=== PATIENT | female | born 1995 | race African-American/Black ===

== ENCOUNTER 2017-08-24 16:57 | Emergency (ER) | payer BC, OTHER ==
[~2017-08-24] VITALS: Ht 157.5 cm; Wt 63.5 kg
--- NOTE | ~2017-08-24 | EKG ---
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
[~2017-08-24 16:57] MED LIST: BACTRIM DS TAB1 EAC1 PO; BENADRYL25 MG; IBUPROFEN 600600 M1; PYRIDIUM200 MG PO
[2017-08-24] MEDS ORDERED: ONDANSETRON HCL4 M2 PO (17:28)
[2017-08-24] MEDS ORDERED: IRON325 PO (17:28)
[2017-08-24 17:31] LABS: HEMATOCRIT 30.9 % (37.0-47.0); HEMOGLOBIN 9.3 gm/dL (12.0-15.0); MCH 18.7 pg (26.0-34.0); MCV 62.5 fL (80.0-100.0); PLATELET COUNT 328 thou/uL (150-400); RBC 4.94 mil/uL (4.20-5.00); RDW 18.7 % (10.5-14.5); WBC 7.4 thou/uL (4.0-11.0)
[2017-08-24 17:38] LABS: ANION GAP 9 mmol/L (7-16); BUN 10 mg/dL (7-18); CALCIUM 9.2 mg/dL (8.5-10.1); CHLORIDE 105 mmol/L (98-107); CO2 24 mmol/L (21-32); CREATININE 0.8 mg/dL (0.6-1.0); GLUCOSE 106 mg/dL (74-106); POTASSIUM 3.8 mmol/L (3.5-5.1); SODIUM 138 mmol/L (136-145)
[2017-08-24 17:53] LABS: ALBUMIN 3.7 g/dL (3.4-5.0); SALICYLATE < 2.8 mg/dL (2.8-20.0); SGOT 16 U/L (15-37); SGPT 15 U/L (30-65); TOTAL BILIRUBIN 1.3 mg/dL (<0.1-1.0); TOTAL PROTEIN 7.7 g/dL (6.4-8.2); TROPONIN-I < 0.04 ng/mL (<0.06)
[2017-08-24 17:54] LABS: URINE BILIRUBIN NEGATIVE (Negative); URINE BLOOD NEGATIVE (Negative); URINE CLARITY CLEAR; URINE COLOR YELLOW; URINE GLUCOSE-RANDOM* NEGATIVE (Negative); URINE KETONES TRACE (Negative); URINE LEUKOCYTES NEGATIVE (Negative); URINE NITRITE NEGATIVE (Negative); URINE PROTEIN (DIPSTICK) NEGATIVE (Negative); URINE SPECIFIC GRAVITY 1.025 (1.005-1.035)
[2017-08-24 18:01] LABS: ABSOLUTE NEUTROPHILS 5.2 thou/uL (1.4-8.2); HYPOCHROMASIA 2+
[2017-08-24 18:02] LABS: ANISOCYTOSIS 3+; MICROCYTES 2+
[2017-08-24 18:07] LABS: AMP/METHAMP Negative (Negative); BARBITURATES Negative (Negative); BENZODIAZEPINES Negative (Negative); COCAINE Negative (Negative); METHADONE Negative (Negative); OPIATES Negative (Negative); PCP Negative (Negative)
[2017-08-24 20:33] LABS: CSF CLARITY CLEAR; CSF COLOR COLORLESS; CSF RBC 5 /mm3; CSF WBC 3 /mm3 (0-10); VOLUME 4 ml
[2017-08-24] MEDS ORDERED: REGLAN 10 MG TA10 MG PO (21:52)
[2017-08-24 21:57] VITALS: BP 98/57
[2017-08-25] MEDS ORDERED: HYDROCODONE-AP1 EAC6 PO (21:41)
== END 2017-08-24 22:00 | disposition home or self-care (01) ==
LOC: ER 16:57
PROVIDERS: Emergency Medicine; Physician Assistant
DX: R55 Syncope and collapse (principal); R41.82 Altered mental status, unspecified; D50.0 Iron deficiency anemia secondary to blood loss (chronic); F12.10 Cannabis abuse, uncomplicated; R11.10 Vomiting, unspecified

== ENCOUNTER 2017-08-25 21:34 | Inpatient (IN) | payer BC, OTHER ==
[~2017-08-25] VITALS: Ht 157.5 cm; Wt 65.8 kg
[~2017-08-25 21:34] MED LIST changes: +IRON325 PO; +ONDANSETRON HCL4 M2 PO; +REGLAN 10 MG TA10 MG PO
[2017-08-25 21:36] VITALS: BP 117/79
[2017-08-25] MEDS ORDERED: HYDROCODONE-AP1 EAC6 PO (21:41)
[2017-08-26 00:47] VITALS: BP 99/58
[2017-08-26 09:51] VITALS: BP 115/71
[2017-08-26 10:39] VITALS: BP 117/81
[2017-08-26 11:40] VITALS: BP 110/74
[2017-08-26 19:32] VITALS: BP 117/77
[2017-08-27 03:58] VITALS: BP 128/88
[2017-08-27 08:42] VITALS: BP 117/83
[2017-08-27] MEDS ORDERED: ZOFRAN ODT4 MG PO (09:29)
[2017-08-27] MEDS ORDERED: TORADOL 10 MG T10 MG PO (09:43)
[2017-08-27 09:52] VITALS: BP 117/83
[2017-08-27 10:05] VITALS: BP 117/83
== END 2017-08-27 10:40 | disposition home or self-care (01) | DRG 103 ==
LOC: ER 21:34 → EROBS 23:28 → 4N 08-26 11:33 → ENTRNSPT 08-27 10:34 → EDTRNSPTSTS 08-27 10:37 → 4N 08-27 10:40
DX: R51 Headache (principal); F12.90 Cannabis use, unspecified, uncomplicated; Z28.21 Immunization not carried out because of patient refusal; Z79.899 Other long term (current) drug therapy
CPT/HCPCS: 10091

== ENCOUNTER 2018-01-25 07:29 | Emergency (ER) | payer BC, OTHER ==
[~2018-01-25] VITALS: Ht 157.5 cm; Wt 63.5 kg
[~2018-01-25 07:29] MED LIST changes: +HYDROCODONE-AP1 EAC6 PO; +TORADOL 10 MG T10 MG PO; +ZOFRAN ODT4 MG PO
[2018-01-25] MEDS ORDERED: NORFLEX100 MG PO (09:09)
[2018-01-25] MEDS ORDERED: NAPROSYN500 MG PO (09:09)
== END 2018-01-25 09:36 | disposition home or self-care (01) ==
LOC: ER 07:29
DX: M54.2 Cervicalgia (principal); M54.9 Dorsalgia, unspecified; G89.29 Other chronic pain; H53.8 Other visual disturbances

== ENCOUNTER 2018-07-10 22:39 | Emergency (ER) | payer OTHER ==
[~2018-07-10] VITALS: Ht 157.5 cm; Wt 72.6 kg
[~2018-07-10 22:39] MED LIST changes: +NAPROSYN500 MG PO; +NORFLEX100 MG PO
[2018-07-10 23:48] LABS: HEMATOCRIT 30.9 % (37.0-47.0); HEMOGLOBIN 9.2 gm/dL (12.0-15.0); MCH 20.7 pg (26.0-34.0); MCHC 29.6 g/dL (28.0-37.0); MCV 69.8 fL (80.0-100.0); RBC 4.43 mil/uL (4.20-5.00); RDW 26.6 % (10.5-14.5); WBC 7.7 thou/uL (4.0-11.0)
[2018-07-10 23:50] LABS: CALCIUM 9.2 mg/dL (8.5-10.1); CREATININE 0.7 mg/dL (0.6-1.0); MAGNESIUM 1.8 mg/dL (1.8-2.4)
[2018-07-10 23:51] LABS: POTASSIUM 4.2 mmol/L (3.5-5.1)
[2018-07-11] MEDS ORDERED: MOBIC7.5 MG PO (00:38)
[2018-07-11 01:03] VITALS: BP 133/77
== END 2018-07-11 01:03 | disposition home or self-care (01) ==
LOC: ER 22:39
PROVIDERS: Emergency Medicine
DX: S86.812A Strain of other muscle(s) and tendon(s) at lower leg level, left leg, initial encounter (principal); R53.1 Weakness; R07.9 Chest pain, unspecified; R05 Cough; Z86.2 Personal history of diseases of the blood and blood-forming organs and certain disorders involving the immune mechanism; X58.XXXA Exposure to other specified factors, initial encounter; Y92.89 Other specified places as the place of occurrence of the external cause; Y93.89 Activity, other specified; Y99.8 Other external cause status

== ENCOUNTER 2018-10-31 13:06 | Emergency (ER) | payer OTHER ==
[~2018-10-31] VITALS: Ht 162.6 cm; Wt 77.1 kg
[~2018-10-31 13:06] MED LIST changes: +MOBIC7.5 MG PO
[2018-10-31 14:18] LABS: ABSOLUTE NEUTROPHILS 14.9 thou/uL (1.4-8.2); EOSINOPHILS 0.2 % (0.0-3.0); HEMOGLOBIN 10.9 gm/dL (12.0-15.0); LYMPHOCYTES 4.5 % (24.0-44.0); MCH 23.4 pg (26.0-34.0); MCHC 31.2 g/dL (28.0-37.0); MCV 74.9 fL (80.0-100.0); MONOCYTES 3.8 % (1.0-8.0); PLATELET COUNT 334 thou/uL (150-400); POLYS 89.5 % (36.0-66.0); RBC 4.67 mil/uL (4.20-5.00); WBC 16.6 thou/uL (4.0-11.0)
[2018-10-31 14:24] LABS: CALCIUM 9.8 mg/dL (8.5-10.1); CREATININE 0.8 mg/dL (0.6-1.0); POTASSIUM 3.7 mmol/L (3.5-5.1)
[2018-10-31 14:31] LABS: DIRECT BILIRUBIN 0.1 mg/dL (<0.1-0.3); TOTAL BILIRUBIN 0.9 mg/dL (<0.1-1.0); TOTAL PROTEIN 8.5 g/dL (6.4-8.2)
--- NOTE | 2018-10-31 14:49 | EKG ---
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 : 1995 Requested By: Karma Landa Order Number: [id number] MD: Elias Domínguez Measurements Intervals [place] Rate: 87 P: 86 NC: 117 QRS: 54 QRSD: 80 T: 26 QT: 332 QTc: 400 Interpretive Statements Sinus rhythm Borderline short NC interval Compared to ECG 08/24/2017 17:07:10 No significant changes Electronically Signed On 10-31-2018 14:49:36 CDT by Elias Domínguez [email or web address] ��������������������������������������������� <ELECTRONICALLY SIGNED> ���������������������������������������� By: Elias Domínguez MD ��������������������������������������������� 10/31/18 1449 1324 1324 MD YESSICA Breen
[2018-10-31 15:03] LABS: URINE BILIRUBIN NEGATIVE (Negative); URINE BLOOD NEGATIVE (Negative); URINE CLARITY SL CLOUDY; URINE COLOR YELLOW; URINE GLUCOSE-RANDOM* NEGATIVE (Negative); URINE KETONES TRACE (Negative); URINE NITRITE-REFLEX NEGATIVE (Negative); URINE PROTEIN (DIPSTICK) NEGATIVE (Negative); URINE SPECIFIC GRAVITY >= 1.030 (1.005-1.035); URINE UROBILINOGEN 0.2 E.U./dl (0.2-1.0)
[2018-10-31 15:12] LABS: URINE LEUKOCYTES-REFLEX 2+ (Negative)
[2018-10-31 15:13] LABS: CASTS None Seen /LPF (None Seen); CRYSTALS None Seen /LPF (None Seen); SQUAMOUS 4-10 Moderate /LPF (0-3); URINE RBC None Seen /HPF (0-2)
[2018-10-31 15:14] LABS: BACTERIA-REFLEX 1-9 Few /HPF (None Seen)
[2018-10-31] MEDS ORDERED: KEFLEX500 M1 PO (17:02)
[2018-10-31 19:18] VITALS: BP 111/62
== END 2018-10-31 19:31 | disposition home or self-care (01) ==
LOC: ER 13:06
PROVIDERS: Emergency Medicine; Physician Assistant
DX: N39.0 Urinary tract infection, site not specified (principal); D64.9 Anemia, unspecified

== ENCOUNTER 2019-01-30 15:43 | Emergency (ER) | payer OTHER ==
[~2019-01-30] VITALS: Ht 157.5 cm; Wt 79.4 kg
[~2019-01-30 15:43] MED LIST changes: +KEFLEX500 M1 PO
[2019-01-30 16:05] LABS: HEMATOCRIT 33.4 % (37.0-47.0); HEMOGLOBIN 10.2 gm/dL (12.0-15.0); MCH 20.8 pg (26.0-34.0); MCHC 30.5 g/dL (28.0-37.0); MCV 68.1 fL (80.0-100.0); PLATELET COUNT 329 thou/uL (150-400); RDW 18.6 % (10.5-14.5); WBC 7.4 thou/uL (4.0-11.0)
[2019-01-30 16:13] LABS: CALCIUM 9.7 mg/dL (8.5-10.1); CREATININE 0.7 mg/dL (0.6-1.0); POTASSIUM 3.7 mmol/L (3.5-5.1)
[2019-01-30 16:16] LABS: URINE BILIRUBIN NEGATIVE (Negative); URINE BLOOD NEGATIVE (Negative); URINE CLARITY CLEAR; URINE COLOR YELLOW; URINE GLUCOSE-RANDOM* NEGATIVE (Negative); URINE KETONES NEGATIVE (Negative); URINE NITRITE-REFLEX NEGATIVE (Negative); URINE PROTEIN (DIPSTICK) NEGATIVE (Negative); URINE SPECIFIC GRAVITY <= 1.005 (1.005-1.035); URINE UROBILINOGEN 0.2 E.U./dl (0.2-1.0)
[2019-01-30 16:18] LABS: URINE LEUKOCYTES-REFLEX 1+ (Negative)
[2019-01-30 16:25] LABS: ABSOLUTE NEUTROPHILS 4.4 thou/uL (1.4-8.2)
[2019-01-30 16:26] LABS: BACTERIA-REFLEX 1-9 Few /HPF (None Seen); CASTS None Seen /LPF (None Seen); CRYSTALS None Seen /LPF (None Seen); SQUAMOUS 4-10 Moderate /LPF (0-3); URINE RBC None Seen /HPF (0-2); URINE WBC-REFLEX 6-15 Few /HPF (0-5)
[2019-01-30 16:26] LABS: ANISOCYTOSIS 1+; HYPOCHROMASIA 1+; MICROCYTES 1+; OVALOCYTES OCCASIONAL
[2019-01-30] MEDS ORDERED: UNISOM25 MG PO (17:59)
[2019-01-30] MEDS ORDERED: KEFLEX500 M1 PO (17:59)
[2019-01-30] MEDS ORDERED: PYRIDOXINE HCL25 MG PO (17:59)
[2019-01-30] MEDS ORDERED: ONDANSETRON HCL4 M2 PO (17:59)
[2019-01-30 18:09] VITALS: BP 115/66
== END 2019-01-30 18:10 | disposition home or self-care (01) ==
LOC: ER 15:43
PROVIDERS: Physician Assistant
DX: O23.41 Unspecified infection of urinary tract in pregnancy, first trimester (principal); O99.011 Anemia complicating pregnancy, first trimester; O21.9 Vomiting of pregnancy, unspecified; Z3A.01 Less than 8 weeks gestation of pregnancy

== ENCOUNTER 2020-06-11 09:38 | Emergency (ER) | payer OTHER ==
[~2020-06-11] VITALS: Ht 157.5 cm; Wt 72.6 kg
[~2020-06-11 09:38] MED LIST changes: +PYRIDOXINE HCL25 MG PO; +UNISOM25 MG PO
[2020-06-11] MEDS ORDERED: BUSPIRONE HCL10 MG PO (09:40)
[2020-06-11] MEDS ORDERED: ZOLOFT100 MG PO (09:41)
[2020-06-11] MEDS ORDERED: CEFDINIR300 MG PO (11:14)
[2020-06-11 11:24] VITALS: BP 112/64
== END 2020-06-11 11:25 | disposition home or self-care (01) ==
LOC: ER 09:38
DX: R59.0 Localized enlarged lymph nodes (principal); R51.9 Headache, unspecified; Z79.899 Other long term (current) drug therapy